=== PATIENT | female | born 1995 | race Caucasian/White ===

== ENCOUNTER 2017-06-27 17:49 | Emergency (ER) | payer BC ==
[2017-06-27 18:00] VITALS: BP 130/79
--- NOTE | 2017-06-27 20:08 | UC ---
Nausea/Vomiting/Diarrhea HPI - HPI Summary HPI Summary: This is a 22 yo female with anxiety/depression who presented with c/o intermittent n/v/d over the last 5d or so. No assoc fever or abd pain. Diarrhea is no more than a couple times per day. No melena, hematachezia, hematemesis or coffee ground emesis. Denies dysuria, hematuria. She is not sexually active. - History of Current Complaint Chief Complaint: UCGI Stated Complaint: VOMITING Time Seen by Provider: 06/27/17 19:45 Hx Last Menstrual Period: ~1 MONTH AGO (ON CONTROL) - Allergies/Home Medications Allergies/Adverse Reactions: Allergies Allergy/AdvReac Type Severity Reaction Status Date / Time Cefdinir [From Omnicef] Allergy Severe Hives Verified 06/27/17 18:00 Sodium Benzoate Allergy Severe Hives Verified 06/27/17 18:00 [From Omnicef] Sulfa Antibiotics Allergy Severe Hives Verified 06/27/17 18:00 Tetracyclines & Related Allergy Severe Hives Verified 06/27/17 18:00 Home Medications: Home Medications Amphetamine/Dextroamph ER(NF) [Adderal XR (NF)] 1 cap PO DAILY 06/27/17 [ History Confirmed 06/27/17] Atomoxetine (NF) [Strattera (NF)] 40 mg PO DAILY 06/27/17 [History Confirmed ] Cholecalciferol [Vitamin D3] 06/27/17 [History] Levonorgestrel-Ethinyl Estradi [Jolessa 0.15-0.03 mg] 1 tab PO DAILY 06/27/17 [ History Confirmed 06/27/17] Vitamin B Complex TAB* [Complex B-100*] 1 tab PO DAILY 06/27/17 [History Confirmed 06/27/17] PMH/Surg Hx/FS Hx/Imm Hx Previously Healthy: No - anxiety/depression - Surgical History Surgical History: Yes Surgery Procedure, Year, and Place: WISDOM TEETH - Family History Known Family History: Positive: None - Social History Alcohol Use: None Substance Use Type: None Smoking Status (MU): Never Smoked Tobacco Review of Systems Constitutional: Negative Skin: Negative Eyes: Negative ENT: Negative Respiratory: Negative Cardiovascular: Negative Gastrointestinal: Vomiting, Diarrhea, Nausea Genitourinary: Negative Motor: Negative Neurovascular: Negative Musculoskeletal: Negative Neurological: Negative Psychological: Negative Is Patient Immunocompromised?: No All Other Systems Reviewed And Are Negative: Yes Physical Exam Triage Information Reviewed: Yes Appearance: Well-Appearing Vital Signs: Initial Vital Signs Temp 98.3 F 06/27/17 17:56 Pulse 113 06/27/17 17:56 Resp 16 06/27/17 17:56 BP 130/79 06/27/17 17:56 Pulse Ox 100 06/27/17 17:56 Vital Signs Reviewed: Yes ENT: Positive: Normal ENT inspection, Hearing grossly normal, Pharynx normal, TMs normal Dental Exam: Normal Neck exam: Normal Neck: Positive: Supple Respiratory: Positive: Lungs clear, Normal breath sounds. Negative: Crackles, Rhonchi, Wheezing Cardiovascular: Positive: RRR, No Murmur Abdomen Description: Positive: Nontender, Soft. Negative: CVA Tenderness (R), CVA Tenderness (L) Musculoskeletal Exam: Normal Musculoskeletal: Positive: Strength Intact Neurological: Positive: Alert Psychological Exam: Normal Psychological: Positive: Normal Response To Family Skin Exam: Normal Skin: Positive: rashes Diagnostics - Laboratory Diagnostic Studies Completed/Ordered: Unable to produce urine sample Naus/Vom/Diarrhea Course/Dx - Course Course Of Treatment: This is an otherwise healthy 22 yo female who has had intermittent n/v/d over the last several days. It seems that the freq is improving. No fever or focal exam findings. She was unable to produce a urine sample. She likely has a viral illness that is improving. - Differential Dx/Diagnosis Differential Diagnoses - Female: Urinary Tract Infection, Gastroenteritis (Viral ), Vomiting, Diarrhea, Colitis Provider Diagnoses: 1. Acute viral gastroenteritis Condition At Discharge: Stable Discharge - Discharge Plan Condition: Stable Disposition: HOME Prescriptions: Ondansetron ODT TAB* [Zofran 4 MG Odt TAB*] 4 mg PO Q4H PRN #30 tab.odt PRN Reason: Nausea/Vomiting Patient Education Materials: Gastroenteritis (ED) Additional Instructions: Instructions: 1. Use Zofran as needed for nausea 2. Follow up with your PCP if your symptoms continue
== END 2017-06-27 20:00 | disposition home or self-care (01) ==
LOC: UCEAST 17:49
DX: A08.4 Viral intestinal infection, unspecified (principal)
CPT/HCPCS: 99202; G0463

== ENCOUNTER 2019-02-08 17:31 | Emergency (ER) | payer BC ==
[2019-02-08 17:46] VITALS: BP 140/91
--- NOTE | 2019-02-08 17:49 | UC ---
Throat Pain/Nasal Arturo HPI - HPI Summary HPI Summary: Started w/ a nose bleed 2 hrs ago and feels like it has not stopped. Just got back from [place] where the same thing happened but it stopped w/ in 5 min. denies bruising, bleeding gums while brushing, heavy periods. denies taking blood thinners. - History of Current Complaint Chief Complaint: UCRespiratory Stated Complaint: NOSE BLEED Time Seen by Provider: 02/08/19 17:48 Hx Obtained From: Patient Hx Last Menstrual Period: ~1 MONTH AGO (ON CONTROL) Onset/Duration: Sudden Onset Severity: Mild Pain Intensity: 0 Pain Scale Used: 0-10 Numeric - Allergies/Home Medications Allergies/Adverse Reactions: Allergies Allergy/AdvReac Type Severity Reaction Status Date / Time MS Cefdinir [From Omnicef] Allergy Severe Hives Verified 02/08/19 17:42 MS Sodium Benzoate Allergy Severe Hives Verified 02/08/19 17:42 [From Omnicef] MS Sulfa Antibiotics Allergy Severe Hives Verified 02/08/19 17:42 [Sulfa Antibiotics] MS Tetracyclines & Related Allergy Severe Hives Verified 02/08/19 17:42 [Tetracyclines & Related] Home Medications: Home Medications Atomoxetine (NF) [Strattera (NF)] 40 mg PO 02/08/19 [History] Dextroamphetamine/Amphetamine [Adderall Xr 15 mg Capsule] 15 mg PO 02/08/19 [ History] PMH/Surg Hx/FS Hx/Imm Hx - Additional Past Medical History Additional PMH: adhd Previously Healthy: Yes - Surgical History Surgical History: Yes Surgery Procedure, Year, and Place: WISDOM TEETH - Family History Known Family History: Positive: None - Social History Alcohol Use: None Substance Use Type: None Smoking Status (MU): Never Smoked Tobacco Review of Systems All Other Systems Reviewed And Are Negative: Yes Constitutional: Positive: Negative Skin: Negative: Rash, Bruising ENT: Positive: Epistaxis Respiratory: Positive: Negative Cardiovascular: Positive: Negative Neurological: Negative: Headache Physical Exam Triage Information Reviewed: Yes Appearance: Well-Appearing Vital Signs: Initial Vital Signs Temp 98.6 F 02/08/19 17:43 Pulse 121 02/08/19 17:43 Resp 16 02/08/19 17:43 BP 140/91 02/08/19 17:43 Pulse Ox 100 02/08/19 17:43 Vital Signs Reviewed: Yes ENT: Positive: Other - abrasion in L turbinate, no active bleeding. no tenderness at bridge.. Negative: Sinus tenderness Skin: Negative: Other - no bruising noted. Throat Pain/Nasal Course/Dx - Course Course Of Treatment: Epistaxis lasting approx 1-2 hrs. During visit there was no active bleeding. Abrasion noted in turbinate on exam. We discussed her tachycardia and mom was told this was [place] by a monorail operator. We discussed using vaseline for abrasion. - Differential Dx/Diagnosis Differential Diagnosis/HQI/PQRI: Other Provider Diagnosis: Epistaxis Discharge - Sign-Out/Discharge Documenting (check all that apply): Patient Departure All imaging exams completed and their final reports reviewed: No Studies - Discharge Plan Condition: Good Disposition: HOME Patient Education Materials: Nosebleed (ED) Referrals: Alexia Maciel NP [Primary Care Provider] - Additional Instructions: Please follow up with your primary care if worsening. - Billing Disposition and Condition Condition: GOOD Disposition: Home
== END 2019-02-08 17:55 | disposition home or self-care (01) ==
LOC: UCEAST 17:31
DX: R04.0 Epistaxis (principal)
CPT/HCPCS: 99211; G0463